=== PATIENT | female | born 1970 | race American Indian/Alaskan Native ===

== ENCOUNTER 2017-12-09 13:57 | Emergency (ER) | payer OTHER ==
[2017-12-09 14:18] VITALS: RESP 18; TEMP 98.4; O2SAT 98; BMI 30.9
[2017-12-09] MEDS ORDERED: Sodium Chloride 0.9% 1,000 ML IV STA (15:00)
[2017-12-09 15:30] LABS: PH,URINE 6.5 (4.7-8.0); URINE BILIRUBIN NEGATIVE (NEGATIVE); URINE BLOOD NEGATIVE (NEGATIVE); URINE GLUCOSE (UA) NEGATIVE (NEGATIVE); URINE LEUKOCYTE ESTERASE NEGATIVE Leu/uL (NEGATIVE); URINE PROTEIN NEGATIVE mg/dL (<30 mg/dL); URINE UROBILINOGEN 0.2 E.U./dL (<1 E.U./dL)
[2017-12-09 15:30] LABS: BASO # 0.06 K/mm3 (0.0-2.0); BASO % 0.8 % (0.0-3.0); EOS # 0.1 (0.0-0.7); EOS % 1.3 % (1.5-5.0); GRAN # 3.95 (1.4-6.5); GRAN % 50.4 % (50.0-68.0); HEMOGLOBIN 8.7 g/dL (12.0-16.0); LYMPH # 2.9 (1.2-3.4); LYMPH % 37.3 % (22.0-35.0); MEAN CELL VOLUME 69.2 fl (80.0-105.0); MEAN CORPUSCULAR HGB CONC 31.8 g/dl (31.0-37.0); MEAN PLATELET VOLUME 9.9 fl (7.0-11.0); MONO # 0.8 (0.1-0.6); MONO % 10.2 % (1.0-6.0); RBC 3.96 10^6/uL (3.5-6.1); RED CELL DISTRIBUTION WIDTH 16.9 % (11.5-14.5); WHITE BLOOD COUNT 7.8 10^3/ul (4.5-11.0)
[2017-12-09 15:34] LABS: ALB/GLOB RATIO 1.2 (1.1-1.8); ALBUMIN 4.3 g/dL (3.0-4.8); ALT/SGPT 30 U/L (7-56); AST/SGOT 43 U/L (14-36); BLOOD UREA NITROGEN 10 mg/dL (7-21); CALCIUM 9.1 mg/dL (8.4-10.5); GFR AFRICAN-AMERICAN > 60; GFR NON-AFRICAN AMERICAN > 60; LIPASE 47 U/L (23-300)
[2017-12-09 15:34] LABS: HCG,QUALITATIVE URINE NEGATIVE (NEGATIVE); URINE APPEARANCE CLEAR (CLEAR); URINE COLOR LIGHT YELLOW (YELLOW)
--- NOTE | 2017-12-09 16:46 | ED PDOC ---
Arrival/HPI - General Chief Complaint: Abdominal Pain Time Seen by Provider: 12/09/17 15:00 Historian: Patient - History of Present Illness Narrative History of Present Illness (Text): 12/09/17 16:43 47-year-old female Presents today with a one-week history of left-sided abdominal pain. Patient states initially started the right side of the abdomen and radiated to the left side of the abdomen. Patient states the pain is localized along the upper and lower aspects of the left side of the abdomen. She denies chest pain or shortness of breath. Denies fevers or chills. Patient denies dysuria but states as of today she's had some urinary frequency. She denies diarrhea or constipation. She is complaining of occasional nausea. Patient denies any sick contacts. Patient denies radiation of pain to the back. No other complaints Past Medical History - Provider Review Nursing Documentation Reviewed: Yes - Travel History Have you recently traveled outside [place] w/in the past 3 mons?: No - Infectious Disease Hx of Infectious Diseases: None - Tetanus Immunization Tetanus Immunization: Unknown - Cardiac Hx Cardiac Disorders: No - Pulmonary Hx Respiratory Disorders: No - Neurological Hx Neurological Disorder: No - HEENT Hx HEENT Disorder: No - Renal Hx Renal Disorder: No - Endocrine/Metabolic Hx Endocrine Disorders: No - Hematological/Oncological Hx Anemia: Yes (sickle cell) - Integumentary Hx Dermatological Disorder: No - Musculoskeletal/Rheumatological Hx Musculoskeletal Disorders: No - Gastrointestinal Hx Gastrointestinal Disorders: No - Genitourinary/Gynecological Hx Genitourinary Disorders: No - Psychiatric Hx Depression: No Hx Substance Use: Yes (occasionally) - Surgical History Hx Section: Yes (x2) Hx Splenectomy: Yes Other/Comment: splenectomy - Anesthesia Hx Anesthesia: Yes Hx Anesthesia Reactions: No Hx Malignant Hyperthermia: No - Suicidal Assessment Feels Threatened In Home Enviroment: No Family/Social History - Physician Review Nursing Documentation Reviewed: Yes Family/Social History: Unknown Family HX Smoking Status: Never Smoked Hx Alcohol Use: Yes Frequency of alcohol use: Socially Hx Substance Use: Yes (occasionally) Substance used: marijuana Allergies/Home Meds Allergies/Adverse Reactions: Allergies No Known Allergies Allergy (Verified 04/07/16 21:48) Review of Systems - Review of Systems Constitutional: absent: Fatigue, Fevers Respiratory: absent: SOB, Cough Cardiovascular: absent: Chest Pain, Palpitations Gastrointestinal: Abdominal Pain, Nausea. absent: Constipation, Diarrhea, Vomiting Genitourinary Female: Frequency. absent: Dysuria, Hematuria, Vaginal Bleeding, Vaginal Discharge Musculoskeletal: absent: Arthralgias, Back Pain, Neck Pain Skin: absent: Rash, Pruritis Neurological: absent: Headache, Dizziness Psychiatric: absent: Anxiety, Depression, Suicidal Ideation Physical Exam Vital Signs Reviewed: Yes Vital Signs Temp Pulse Resp BP Pulse Ox 12/09/17 17:21 75 18 135/79 98 12/09/17 15:30 79 18 138/86 98 12/09/17 14:17 98.4 F 86 18 149/98 H 98 Temperature: Afebrile Blood Pressure: Hypertensive Pulse: Regular Respiratory Rate: Normal Appearance: Positive for: Well-Appearing, Non-Toxic, Comfortable Pain Distress: None Mental Status: Positive for: Alert and Oriented X 3 - Systems Exam Head: Present: Atraumatic Mouth: Present: Moist Mucous Membranes Neck: Present: Normal Range of Motion Respiratory/Chest: Present: Clear to Auscultation, Good Air Exchange. No: Respiratory Distress, Accessory Muscle Use Cardiovascular: Present: Regular Rate and Rhythm, Normal S1, S2. No: Murmurs Abdomen: Present: Tenderness (minimal LUQ and LLQ tenderness), Normal Bowel Sounds. No: Distention, Peritoneal Signs, Rebound, Guarding Rectal: Present: Normal Rectal Tone. No: Occult Blood, Rectal Tenderness, Gross Blood, Melena, Hemorrhoids, Fissures Back: Present: Normal Inspection Upper Extremity: Present: Normal ROM Lower Extremity: Present: Normal ROM Neurological: Present: GCS=15, Speech Normal Skin: Present: Warm, Dry, Normal Color. No: Rashes Psychiatric: Present: Alert, Oriented x 3 Medical Decision Making ED Course and Treatment: 12/09/17 16:47 Patient is nontoxic well appearing with stable vital signs presenting with left sided abdominal pain. CBC hgb;8.7 CMP: wnl Lipase wnl Urinalysis : wnl CAT scan: FINDINGS: LOWER THORAX: Unremarkable. LIVER: Unremarkable. No gross lesion or ductal dilatation. GALLBLADDER AND BILE DUCTS: Unremarkable. PANCREAS: Unremarkable. No gross lesion or ductal dilatation. SPLEEN: Status post splenectomy. Surgical clips in splenic fossa. ADRENALS: Unremarkable. No mass. KIDNEYS AND URETERS: Unremarkable. No hydronephrosis. No solid mass. VASCULATURE: Unremarkable. No aortic aneurysm. BOWEL: Unremarkable. No obstruction. No gross mural thickening. APPENDIX: Normal appendix. PERITONEUM: Unremarkable. No free fluid. No free air. LYMPH NODES: Unremarkable. No enlarged lymph nodes. BLADDER: Unremarkable. REPRODUCTIVE: Normal years BONES: No acute fracture. OTHER FINDINGS: None. IMPRESSION: Status post splenectomy. Otherwise unremarkable examination. Patient reassessment: pt is non toxic well appearing; no distress. stable vitals. pt with heme negative brown stools. hemoglobin is 8.7 approx. patients baseline. I discussed all results in depth with the patient. I've advised the patient to follow-up with the real estate closing coordinator within the next 2 days. I've advised follow-up with the GI specialist within the next 2 days. I've advised increasing fluids and taking her iron supplementation as prescribed and taking Pepcid daily. I've advised immediate return if symptoms worsen persist or if new concerning symptoms develop Patient verbalizes understanding of discharge instructions and need for immediate followup. all aspects of this case were discussed the attending of record. Impression: Abdominal pain, anemia Pepcid one tablet daily Follow up with primary care physician within the next 2 days Follow up with the GI specialist within the next 2 days. follow up with the Cardiology Physician within the next 2 days. Return immediately if symptoms worsen persist or if new symptoms develop: High fevers, increasing pain, vomiting, diarrhea or any other concerning symptoms develop Reassessment Condition: Re-examined, Improved - Lab Interpretations Lab Results: 12/09/17 15:05 12/09/17 15:05 Lab Results 12/09/17 15:06: Urine Color Light yellow, Urine Appearance Clear, Urine pH 6.5, Ur Specific [place] <= 1.005, Urine Protein Negative, Urine Glucose (UA) Negative, Urine Ketones Negative, Urine Blood Negative, Urine Nitrate Negative, Urine Bilirubin Negative, Urine Urobilinogen 0.2, Ur Leukocyte Esterase Negative , Urine HCG, Qual Negative 12/09/17 15:05: WBC 7.8, RBC 3.96, Hgb 8.7 L, Hct 27.4 L, MCV 69.2 L, MCH 22.0 L , MCHC 31.8, RDW 16.9 H, Plt Count 557 H, MPV 9.9, Gran % 50.4, Lymph % (Auto) 37.3 H, [place] % (Auto) 10.2 H, Eos % (Auto) 1.3 L, Baso % (Auto) 0.8, Gran # 3.95 , Lymph # (Auto) 2.9, [place] # (Auto) 0.8 H, Eos # (Auto) 0.1, Baso # (Auto) 0.06 12/09/17 15:05: Sodium 141, Potassium 3.9, Chloride 102, Carbon Dioxide 28, Anion Gap 15, BUN 10, Creatinine 0.9, Est GFR ( Amer) > 60, Est GFR (Non- Af Amer) > 60, Random Glucose 108, Calcium 9.1, Total Bilirubin 0.3, AST 43 H, ALT 30, Alkaline Phosphatase 67, Total Protein 8.0, Albumin 4.3, Globulin 3.7, Albumin/Globulin Ratio 1.2, Lipase 47 - RAD Interpretation Radiology Orders: 12/09/17 16:03 ABD & PELVIS IV CONTRAST ONLY [CT] Stat - Medication Orders Current Medication Orders: Discontinued Medications Sodium Chloride (Sodium Chloride 0.9%) 1,000 mls @ 999 mls/hr IV .Q1H1M STA Stop: 12/09/17 16:00 Last Admin: 12/09/17 15:59 Dose: 999 mls/hr eMAR Start Stop Document 12/09/17 15:59 SS (Rec: 12/09/17 15:59 SS [id number]) Intravenous Solution Start Date 12/09/17 Start Time 15:59 End Date 12/09/17 End time 16:59 Total Infusion Time 60 Ketorolac Tromethamine (Toradol) 30 mg IVP STAT STA Stop: 12/09/17 16:04 Last Admin: 12/09/17 16:39 Dose: 30 mg MAR Pain Assessment Document 12/09/17 16:39 SS (Rec: 12/09/17 16:40 SS [id number]) Pain Reassessment Is this a pain reassessment? No Sleep Is patient sleeping during reassessment? No Presence of Pain Presence of Pain Yes Pain Scale Used Pain Scale Used Numeric Location Pain Location Body Site Abdomen IVP Administration Document 12/09/17 16:39 SS (Rec: 12/09/17 16:40 SS [id number]) Charges for Administration # of IVP Administrations 1 Disposition/Present on Arrival - Present on Arrival Any Indicators Present on Arrival: No History of DVT/PE: No History of Uncontrolled Diabetes: No Urinary Catheter: No History of Decub. Ulcer: No History Surgical Site Infection Following: None - Disposition Have Diagnosis and Disposition been Completed?: Yes Diagnosis: Anemia, Abdominal pain Disposition: HOME/ ROUTINE Disposition Time: 17:30 Patient Plan: Discharge Patient Problems: Current Active Problems Problem Status Onset Abdominal pain Acute Anemia Acute Condition: GOOD Discharge Instructions (ExitCare): Acute Abdomen (Belly Pain) Additional Instructions: Pepcid one tablet daily Follow up with primary care physician within the next 2 days Follow up with the GI specialist within the next 2 days. follow up with the Cardiology Physician within the next 2 days. Return immediately if symptoms worsen persist or if new symptoms develop: High fevers, increasing pain, vomiting, diarrhea or any other concerning symptoms develop Prescriptions: Famotidine [Pepcid] 20 mg PO DAILY #30 tab Referrals: Nicko Mary [Primary Care Provider] - Follow up with primary Karen Solano MD [Staff Provider] - Follow up with primary Francois Dominguez MD [Medical Doctor] - Follow up with primary Forms: [facility] [facility] (T[place]anian), WORK NOTE
[2017-12-09] MEDS ORDERED: Iohexol 350 MG/100 ML VIAL ONE (16:47)
[2017-12-09 17:21] VITALS: BP 135/79
--- NOTE | 2017-12-09 17:32 | CT ---
PROCEDURE: CT Abdomen and Pelvis with contrast HISTORY: abd pain COMPARISON: None. TECHNIQUE: Contrast dose: 100 mL Omnipaque 350 Radiation dose: Total exam DLP = 616.41 mGy-cm. This CT exam was performed using one or more of the following dose reduction techniques: Automated exposure control, adjustment of the mA and/or kV according to patient size, and/or use of iterative reconstruction technique. FINDINGS: LOWER THORAX: Unremarkable. LIVER: Unremarkable. No gross lesion or ductal dilatation. GALLBLADDER AND BILE DUCTS: Unremarkable. PANCREAS: Unremarkable. No gross lesion or ductal dilatation. SPLEEN: Status post splenectomy. Surgical clips in splenic fossa. ADRENALS: Unremarkable. No mass. KIDNEYS AND URETERS: Unremarkable. No hydronephrosis. No solid mass. VASCULATURE: Unremarkable. No aortic aneurysm. BOWEL: Unremarkable. No obstruction. No gross mural thickening. APPENDIX: Normal appendix. PERITONEUM: Unremarkable. No free fluid. No free air. LYMPH NODES: Unremarkable. No enlarged lymph nodes. BLADDER: Unremarkable. REPRODUCTIVE: Normal years BONES: No acute fracture. OTHER FINDINGS: None. IMPRESSION: Status post splenectomy. Otherwise unremarkable examination.
[2017-12-09 18:37] VITALS: PULSE 77
== END 2017-12-09 18:36 | disposition home or self-care (01) ==
LOC: ED 13:57
DX: D64.9 Anemia, unspecified (principal); R10.9 Unspecified abdominal pain; Z90.81 Acquired absence of spleen
CPT/HCPCS: 74177; 80053; 81003; 83690; 84703; 85025; 87086; 96361; 96374; 99284; J1885; J7040; Q9967